=== PATIENT | male | born 1955 | race Caucasian/White ===

== ENCOUNTER 2019-07-02 09:23 | Observation (INO) ==
[2019-07-02] MEDS ORDERED: NORFLEX IV ONE (09:49)
[2019-07-02] MEDS ORDERED: NS 500 ML IV ONE (09:49)
[2019-07-02 10:14] LABS: BASO# 0.04 X1000 (0.0-0.2); BASO% 0.6 % (0.0-0.8); EOS# 0.17 X1000 (0.0-0.7); EOS% 2.5 % (0.0-10.0); HEMATOCRIT 36.7 % (42.0-52.0); HEMOGLOBIN 12.2 g/dL (14.0-18.0); LYMPH# 1.13 X1000 (1.2-3.4); LYMPH% 16.5 % (20.5-51.1); MCHC 33.2 g/dL (33-37); MCV 87.2 FL (81-99); MONO# 0.38 X1000 (0.11-0.59); MONO% 5.6 % (1.7-9.3); MPV 10.8 FL (7.4-10.4); NEUT# 5.11 X1000 (1.4-6.5); NEUT% 74.8 % (42.2-75.2); PLT 158 X1000 (130-400); RBC 4.21 XMIL (4.7-6.1); RDW 13.9 % (11.5-14.5); WBC 6.83 X1000 (4.8-10.8)
--- NOTE | 2019-07-02 10:20 | Diag Imaging Result Doc PS360 ---
RIBS UNILAT W/PA CHEST LEFT - 07/02/2019 INDICATION: pain after fall TECHNIQUE: Four views COMPARISON: 11/30/2015 FINDINGS: The chest is clear. The left-sided ribs are intact. IMPRESSION: Negative exam. Electronically signed by Fab Cooney 07/02/2019 10:18 AM
[2019-07-02 10:28] LABS: ACETONE SERUM NEGATIVE (NEGATIVE)
[2019-07-02 10:33] LABS: URINE SOURCE CATH
[2019-07-02 10:33] LABS: AGAP 16; ALB/GLOB RATIO 1.7; ALBUMIN 4.3 g/dL (3.5-5.0); ALKALINE PHOSPHATASE 118 U/L (32-122); BUN 14 mg/dL (8-22); CALCIUM 9.5 mg/dL (8.8-10.2); CHLORIDE 92 mmol/L (98-107); COSMO 266; CREATININE 3.8 mg/dL (0.7-1.2); ESTIMATED GFR 16; GLUCOSE 122 mg/dL (70-104); GOT 22 U/L (10-34); GPT 14 U/L (10-44); PHOSPHORUS 3.6 mg/dL (2.7-4.5); POTASSIUM 3.7 mmol/L (3.5-5.1); SODIUM 132 mmol/L (136-145); TCO2 24 mmol/L (25-35); TOTAL BILIRUBIN 0.59 mg/dL (0.20-1.00); TOTAL PROTEIN 6.8 g/dL (6.3-8.3)
[2019-07-02 10:35] LABS: BILIRUBIN URINE NEGATIVE (NEGATIVE); BLOOD URINE SMALL (NEGATIVE); COLOR YELLOW; GLUCOSE URINE NEGATIVE (NEGATIVE); KETONE URINE NEGATIVE (NEGATIVE); LEUKOCYTES URINE NEGATIVE (NEGATIVE); NITRITE URINE NEGATIVE (NEGATIVE); PH URINE 5.5; PROTEIN URINE 30 mg/dL (NEGATIVE); SP GRAVITY URINE 1.009; TURBIDITY URINE CLEAR (CLEAR); UR EPITHELIAL CELLS <10 /HPF (<10); URINE BACTERIA NEGATIVE /HPF; URINE RBC <10 /HPF (<10); URINE WBC <10 /HPF (<10); UROBILINOGEN URINE NORMAL (NORMAL)
--- NOTE | 2019-07-02 10:37 | Diag Imaging Result Doc PS360 ---
CT ABDOMEN/PELVIS W/O CONTRAST - 07/02/2019 INDICATION: left flank pain after fall, renal failure history COMPARISON: None FINDINGS: The lung bases are clear and the heart size is normal. There are couple of tiny nonobstructing right renal stones measuring about 2 mm. No left-sided stones. No hydronephrosis or hydroureter. Otherwise abdominal organs are normal. No bowel obstruction or inflammation. No free air or free fluid. Urinary bladder, prostate, and rectum are normal. Mild vascular disease in the pelvis. Spleen size is borderline measuring 12 x 6 cm. There are moderate degenerative changes of the spine. There is severe degeneration of the sacroiliac joints bilaterally. No acute or suspicious bony lesion. IMPRESSION: 1. Small nonobstructing right-sided renal stones. 2. No acute process. This exam was performed using automated exposure control, adjustment of mA or kV according to patient size, and/or use of iterative reconstruction technique Electronically signed by Fab Cooney 07/02/2019 10:35 AM
--- NOTE | 2019-07-02 10:44 | EKG Report ---
Test Performed on : 07/02/2019 10:25:20 AM Test Reason : weakness Blood Pressure : / mmHG Vent. Rate : 095 BPM Atrial Rate : 095 BPM P-R Int : 152 ms QRS Dur : 084 ms QT Int : 388 ms P-R-T Axes : 072 063 075 degrees QTc Int : 487 ms Sinus rhythm. with occasional premature ventricular complexes. Prolonged QT Abnormal ECG When compared with ECG of 12-APR-2018 13:53, premature ventricular complexes. are now present premature atrial complexes. are no longer present Criteria for Inferior-posterior infarct are no longer present Unconfirmed Result
--- NOTE | 2019-07-02 11:52 | Diag Imaging Result Doc PS360 ---
EXAM: CT HEAD W/O CONTRAST HISTORY: AMS TECHNIQUE: CT head without contrast COMPARISON: 06/30/2019 FINDINGS: No parenchymal hemorrhage. No epidural or subdural hematoma. No subarachnoid hemorrhage. Mild chronic microvascular ischemic changes. No mass identified on this noncontrasted exam. No hydrocephalus. No sinus opacification. IMPRESSION: No hemorrhage. No change This exam was performed using automated exposure control, adjustment of mA or kV according to patient size, and/or use of iterative reconstruction technique. Electronically signed by Arash Gonzalez 07/02/2019 11:50 AM
[2019-07-02 11:56] LABS: UR AMPHETAMINES QUAL NONE DETECTED (NONE DETECT); UR BARBITUATES QUAL NONE DETECTED (NONE DETECT); UR BENZODIAZEPIN QUAL NONE DETECTED (NONE DETECT); UR CANNABINOIDS QUAL NONE DETECTED (NONE DETECT); UR COCAINE QUAL NONE DETECTED (NONE DETECT); UR METHADONE QUAL NONE DETECTED (NONE DETECT); UR OPIATES QUAL PRESUMPTIVE POSITIVE (NONE DETECT); UR OXYCODONE QUAL NONE DETECTED (NONE DETECT); UR PCP QUAL NONE DETECTED (NONE DETECT)
--- NOTE | 2019-07-02 11:59 | PROVIDER DOCUMENTATION ---
This chart was entered by Niki Tobar Scribe, acting as scribe for Rudy Guzman MD. HPI-General Adult - General Stated Complaint: GENERALIZED WEAKNESS Time Seen by Provider: 07/02/19 09:39 Source: patient Allergies/Adverse Reactions: Patient Allergies Allergy/AdvReac Type Severity Reaction Status Date / Time aspirin AdvReac HIVES Verified 06/30/19 17:02 Home Medications: Home Medication List Medication Instructions Recorded Confirmed Last Taken Type Levothyroxine [Synthroid] 50 microgm PO DAILY 09/09/16 06/30/19 06/25/18 History Mirtazapine [Remeron] 22 mg PO QHS 09/09/16 06/30/19 06/25/18 History Venlafaxine HCl [Effexor Xr] 150 mg PO DAILY 09/09/16 06/30/19 06/25/18 History ROSUVAstatin [Crestor] 20 mg PO DAILY 04/12/18 06/30/19 06/25/18 History Baclofen 20 mg PO TID PRN PRN #15 tab 06/30/19 Unknown Rx Dulaglutide [Trulicity] 1 dose SQ ORDERED 06/30/19 06/30/19 Unknown History - History of Present Illness -Gen Adult Nature of Presenting Problems: 63 yom presents to the ed with c/o generalized weakness, fatigue, cough (mild) and left posterior rib tenderness that has been intermittent since 06/28/2019. pt was seen on 06/30/[address] erazo at [facility] and had a head CT and Rib CT done and dc home. pt is a dialysis pt and goes on monday and fridays only and sees dr pennington. he reports rib tenderness is from a past fall on 06/27 Location of Pain/Injury: reports: generalized (weakness and fatigue), other (posterior rib tenderness) Quality of Pain: reports: aching (left posterior ribs) Severity: reports: mild Onset/Duration: reports: other (06/28/2019) Timing: reports: intermittent Context/Activities at Onset: reports: other (fall on 06/28/2019) Modifying Factors: improves with: nothing Associated Symptoms: reports: cough, fatigue, malaise, muscle aches, weakness (generalized), other (posterior rib pain). denies: chest pain, fever/chills, nausea, shortness of breath, vomiting Similar Symptoms Previously?: Yes Recently seen or treated by another doctor?: Yes (saw dr erazo 06/30/2019 er) Review of Systems - Adult - REVIEW OF SYSTEMS - ADULT Constitutional: denies: chills, fever Eyes: reports: no symptoms reported Ears, Nose, Mouth & Throat: reports: no symptoms reported Cardiovascular: denies: chest pain, palpitations Respiratory: reports: see HPI, cough. denies: shortness of breath, wheezing Gastrointestinal: denies: diarrhea, nausea, vomiting Genitourinary: reports: no symptoms reported Musculoskeletal: reports: see HPI, other (posterior left rib pain/genralized weakness) Integumentary: reports: no symptoms reported Neurological: denies: dizziness/vertigo, headache/migraines Psychiatric: reports: no symptoms reported Endocrine: reports: no symptoms reported Hematologic/Lymphatic: reports: no symptoms reported Allergic/Immunologic: reports: no symptoms reported All Other Systems: Reviewed and Negative Past History - Adult - PAST MEDICAL HISTORY-ADULT Review of Records: reports: Old Records Reviewed, Nursing Assessment Review, Medications Reviewed, Social history reviewed & non-contributory. Major Childhood Illnesses: reports: denies history Cardiovascular: reports: HTN, hyperlipidemia Respiratory: reports: denies history Gastrointestinal: reports: denies history Genitourinary: reports: dialysis (monday and monday only), ESRD Musculoskeletal: reports: denies history Neurological: reports: denies history Psychiatric: reports: denies history Endocrine/Immune: reports: Diabetes, thyroid disorder Diabetes Type: Type 2 Diabetes controlled by:: Diet Other Conditions: reports: denies history - PRIOR SURGERIES/PROCEDURES Surgical/Procedure History: reports: indwelling device (dialysis shunt LUE), hernia repair, orthopedic (extremity) - IMMUNIZATION STATUS Childhood Immunizations: See Nurse Assessment Flu Vaccine: See Nurse Assessment - FAMILY HISTORY Family History: reviewed, not pertinent - SOCIAL HISTORY Smoking: denies Substance Use: denies Living Situation: family Physical Exam-General - PHYSICAL EXAM-ADULT Exam Limited by: pt is poor historian Initial Vital Signs Reviewed: Yes - CONSTITUTIONAL General Appearance: lethargic (but will open to voice and is answers questions correctly) - EYES Eyes: PERRL/EOMI - HEAD, EARS, NOSE, MOUTH & THROAT HENMT: other (raspy voice). negative: moist mucous membranes (dry oral) - NECK Neck: full range of motion, normal inspection - RESPIRATORY Respiratory: lungs clear, normal breath sounds, no respiratory distress, other (left posterior rib tenderness). negative: crepitus - CARDIOVASCULAR Cardiovascular: normal peripheral pulses, regular rate, rhythm, systolic murmur (1/6 at the apex) - GASTROINTESTINAL (ABDOMEN) Abdominal Exam: non tender, soft - GENITOURINARY Male Genitalia: deferred Rectal Exam: deferred Hemoccult Exam: deferred - LYMPHATIC Lymphatic: no adenopathy - MUSCULOSKELETAL Back Exam: no CVA tenderness, no vertebral tenderness Extremity: normal range of motion, normal capillary refill, other (has dialysis shunt left forearm with good thrill) - SKIN Integumentary: warm/dry, pallor - NEUROLOGIC Neurologic: grossly normal - PSYCHIATRIC Psych/Mental Status: oriented x 3 Progress - PLAN OF CARE/RESULTS Progress/Plan/Lab Results: Orders Category Date Time Status RIBS UNILAT W/PA CHEST LEFT [RAD] Stat Exams 07/02/19 09:47 Ordered Result Diagrams: 07/02/19 09:41 07/02/19 09:41 - REASSESSMENT Reassessment #1 Time Reassessed: 11:15 Status: worsening (Patient sleeping vs unresponsive, snoring reespirations with some periods of apnea/pause, rousable with repeated stimulation. Will admit to hospitalist for weakness/falling/hyponatremia) - EKG 1 Time of EKG reading by physician:: 10:25 EKG Read and Signed by:: Rudy Guzman EKG Interpretation (*Must complete 3 of following elements*): Abnormal Rate: 95 Rhythm: sinus rhythm QRS: PVC's, other (prolonged QT) VA Interval: normal ST Wave: normal - XRAY 1 XRAY Study: Chest, Ribs Impression: See EMR Report (FINDINGS: The chest is clear. The left-sided ribs are intact. IMPRESSION: Negative exam. Electronically signed by Fab catherine 07/02/2019 10:18 AM 07/02/19 1018 Interpreting Physician: Fab Cooney MD Dictated Date/Time: 07/02/19 1009) - CT/MRI 1 CT Study: Abdomen, Pelvis Impression: See EMR Report (IMPRESSION: 1. Small nonobstructing right-sided renal stones. 2. No acute process. This exam was performed using automated exposure control, adjustment of mA or kV according to patient size, and/or use of iterative reconstruction technique Electronically signed by Fab Cooney 07/02/2019 10:35 AM) 2 CT Study: Head Impression: Normal, See EMR Report (FINDINGS: No parenchymal hemorrhage. No epidural or subdural hematoma. No subarachnoid hemorrhage. Mild chronic microvascular ischemic changes. No mass identified on this noncontrasted exam. No hydrocephalus. No sinus opacification. IMPRESSION: No hemorrhage. No change This exam was performed using automated exposure control, adjustment of mA or kV according to patient size, and/or use of iterative reconstruction technique. Electronically signed by Arash Gonzalez 07/02/2019 11:50 AM 07/02/19 1150) - CONSULTS/PCP/HOSPITALIST Notification #1 *Consult/PCP/Hospitalist*: Hospitalist paged at 1123 Time Discussed: 11:27 (returned call spoke with liza) Consult Disposition: Will see in ED, Admit Departure - Departure Date of Disposition Decision: 07/02/19 Time of Disposition Decision: 11:25 DIAGNOSIS: Weakness generalized, Frequent falls, Contusion of left back wall of thorax, subsequent encounter, Hyponatremia Altered mental status, unspecified Qualifiers: Altered mental status type: somnolence Qualified Code(s): R40.0 - Somnolence Disposition: ADMITTED INPATIENT 09 Certified Medical Emergency: Emergent Condition: Fair Referrals and Follow-Ups: Juan Canela MD [Primary Care Provider] - - Critical Care Note This patient required my direct & personal management of CC.: No Attestation - Physician/ ALEXIS Attestation Patient care was provided by Advanced Practice Provider:: No The physician spent face to face time with patient:: Yes Advanced Practice Provider documentation review:: Supervising physician onsite and consulted in the evaluation and care of this patient. The physician did have a face to face encounter with the patient. This chart was documented by the indicated scribe, (Niki Tobar Scribe) and accurately reflects the services I performed and decisions made by Flor mc Kent A., MD, as attested by the provider's signature.
[2019-07-02 13:21] LABS: ALLEN TEST NO; BE 1.1 mmoll (-3.0-3.0); BLOOD TYPE ARTERIAL; HCO3-(ACT) 25.8 mmoll (20.0-26.0); METHB 0.7 % (0.0-1.5); O2(CT) 14.6 mL/dL (15.0-23.0); O2HB 96.4 % (95.0-99.0); PCO2(98.6) 45 mmHg (35-45); PO2(98.6) 91 mmHg (60-100); SAMPLE BLOOD; SAO2 98.3 % (95.0-100.0); THB 10.7 g/dL (11.5-17.4); pH(98.6) 7.38 (7.35-7.45)
[2019-07-02 13:22] LABS: MODALITY ROOM AIR
--- NOTE | 2019-07-02 13:58 | HISTORY AND PHYSICAL ---
PRIMARY CARE PROVIDER: Juan Canela MD FACILITIES FLIGHT CHECK PILOT: Dr. Cline. CHIEF COMPLAINT: Per ED record generalized weakness. HISTORY OF PRESENT ILLNESS: Mr. Waddell is a 63-year-old male who carries a past medical history of end-stage renal disease on hemodialysis Monday and Monday, situational depression, diabetes mellitus, hypertension, skin cancer, and GERD, who came to the ED on 06/29 after complaining of generalized weakness, fatigue, and mild cough as well as some left rib tenderness secondary to falls. At that time, he had a head CT that was completely normal as well as a rib CT, and discharged home I believe with some baclofen. He was brought back into the ED today again for generalized weakness. The patient is extremely hard to arouse even with a sternal rub. He does not stay awake long enough to answer many questions. However, his current laboratory data is not far off from baseline. Toxicology screen is positive for opiates. He declines to take pain medication. He does take some trazodone for sleep. Workup in the ED with a repeat rib x-ray is a negative exam. Head CT does not show anything acute. Abdomen and pelvis CT showed some small nonobstructing right-sided renal stones. No acute process currently checking a stat ABG. Hemodynamically, he looks stable. We will place him in the ICU for close observation. PAST MEDICAL HISTORY: End-stage renal disease on hemodialysis Mondays and Fridays, diabetes mellitus, hypertension, GERD, hypothyroidism, and skin cancer. PAST SURGICAL HISTORY: AV fistula placement and revision on the left forearm, carpal tunnel, and cataract. REVIEW OF SYSTEMS: Hard to obtain secondary to the patient being unarousable. PHYSICAL EXAMINATION: VITAL SIGNS: Temperature is 97.6 degrees, heart rate 78, respirations 16, blood pressure 120/57, ad O2 is 100% on room air. GENERAL: Mr. Waddell is a 63-year-old gentleman who is lying on the stretcher snoring. He did not awaken to voice. He was hard to awaken even to tactile stimuli with hard sternal rub. Once he did awaken, he would fall right back asleep, and was not really able to answer any questions, could only briefly flutter open his eyes. HEENT: Atraumatic and normocephalic. PERRL. NECK: Supple. Trachea midline. CARDIOVASCULAR: S1, S2 appreciated, possible murmur. RESPIRATORY: Lung sounds clear bilaterally. GI: Appear to be soft, nontender, and nondistended. Positive bowel sounds. EXTREMITIES: Left forearm shunt with good thrill. SKIN: Appears to be warm, dry, and intact. NEUROLOGIC: The patient was very hard to arouse. He did not arouse to voice. It was hard to arouse him with hard sternal rub. When he did arouse, he would flutter his eyes. He would attempt to answer questions however, he was not able to get any full sentences out before he was back asleep and snoring. DIAGNOSTIC DATA: chest x-ray, negative exam. EKG sinus rhythm with occasional PVCs, prolonged QT. Abdomen and pelvis CT with small nonobstructing right-sided renal stones. No acute process. Head CT, no hemorrhage, no change. LABORATORY DATA: White count 6, hemoglobin and hematocrit 12 and 36, and platelet count is 158,000. Sodium 132, potassium 3.7, BUN 14, creatinine 3.8, blood glucose is 122, magnesium 2, and troponin 37. Urinalysis is negative. Toxicology screen is positive for opiates. ASSESSMENT AND PLAN: 1. Reported falls with generalized weakness. Recent trip to the emergency room 2 days ago for a fall with rib injury. I believe he was given some baclofen then. When I asked him if he took pain medicine, his response was no. He is positive for opiates. Once the patient is more awake and alert, we will consult PT. His rib x-ray does not show any acute process. Head CT is normal. 2. Toxic metabolic encephalopathy. The patient is positive for opiates on drug screen. It does look like he takes trazodone, and has been given baclofen and I believe Effexor as well. Could be a combination. We will hold any sedating medications. He has been given a L of fluid. The patient being end-stage renal. We will see if he needs any more IV fluids. 3. End-stage renal disease on hemodialysis Monday and Monday. We will contact Dr. Cline for help with medical management. 4. Diabetes mellitus. We will place him on sliding scale with pattern blood sugars. He will be n.p.o. for now until he is more awake, and then he can be placed on a diabetic diet. 5. Hypothyroidism. We will continue Synthroid. 6. Hypertension, normotensive. 7. Further recommendation to follow physician evaluation, laboratory and diagnostic data. Dictated by SELINA Pro for Earlene Fairchild MD cc: Earlene Fairchild MD MTDD
[2019-07-02] MEDS: HUMALOG SUBQ SCH ×2 (16:55→20:48)
[2019-07-02] MEDS: HEPARIN SUBQ SCH (20:47)
[2019-07-02] MEDS ORDERED: LASIX PO SCH (21:00)
[2019-07-03] MEDS: SYNTHROID PO SCH (06:01)
[2019-07-03] MEDS: HUMALOG SUBQ SCH (06:01)
[2019-07-03 07:18] LABS: HEMATOCRIT 31.7 % (42.0-52.0); HEMOGLOBIN 10.7 g/dL (14.0-18.0); MCH 29.9 PG (27-31); MCHC 33.8 g/dL (33-37); MCV 88.5 FL (81-99); MPV 10.5 FL (7.4-10.4); RBC 3.58 XMIL (4.7-6.1); RDW 13.8 % (11.5-14.5); WBC 6.98 X1000 (4.8-10.8)
[2019-07-03 07:56] LABS: ALB/GLOB RATIO 1.6; ALBUMIN 3.7 g/dL (3.5-5.0); CREATININE 4.7 mg/dL (0.7-1.2); POTASSIUM 3.9 mmol/L (3.5-5.1); TOTAL BILIRUBIN 0.53 mg/dL (0.20-1.00)
[2019-07-03] MEDS ORDERED: LASIX PO SCH ×2 (09:00→21:00)
[2019-07-03] MEDS: HEPARIN SUBQ SCH ×2 (09:49→20:18)
--- NOTE | 2019-07-03 14:20 | NEPHROLOGY CONSULTATION ---
DATE: 07/03/2019 REASON FOR CONSULTATION: Medical assistance HD patient. HISTORY OF PRESENT ILLNESS: Mr. Waddell is a 63-year-old, white male who is known to us from the outpatient dialysis arena. He has CKD 5D and receives hemodialysis twice a week. He still has good urine output and requires minimal ultrafiltration. He had a fall and started taking a muscle relaxer to assist with pain management. He became somnolent and weak and therefore was brought in the emergency room for evaluation. Today, he is improved but remains somewhat weak. He has some mild cognitive impairment at baseline. He has not missed any dialysis. PAST MEDICAL HISTORY: As above. Also has hypothyroidism, hyperlipidemia, and hypertension. HOME MEDICATIONS: Include venlafaxine, levothyroxine, furosemide, rosuvastatin, trazodone, hydrocodone. ALLERGIES: Aspirin. SOCIAL HISTORY: , lives with his . FAMILY HISTORY: Noncontributory. REVIEW OF SYSTEMS: Noncontributory. PHYSICAL EXAMINATION: Vital Signs: Blood pressure 112/54, heart rate 90, respiration 18, afebrile. General: No acute distress. Skin: Warm and dry. Pupils are equal. Conjunctivae are pink. Oropharynx is clear. Normal tongue. Normal teeth. Neck: Supple. Trachea is midline. No jugular venous distention. Heart: Regular. No gallops. Lungs: Equal. No crackles. Abdomen: Soft, nontender. Bowel sounds are present. Extremities: Have no edema, clubbing or cyanosis. IMPRESSION/PLAN: 1. Chronic kidney disease 5D. He will have his routine dialysis following his normal schedule Monday, Monday. Electrolytes/acid base/volume status/anemia all in target. 2. Altered mental status is improved. 3. I agree with physical therapy assessment. cc: Devang Cline MD
--- NOTE | 2019-07-03 16:49 | ECHO REPORT ---
ORDER DATE: 07/03/2019 ECHOCARDIOGRAPHIC MEASUREMENTS: 1. Interventricular septum 0.9. 2. Left ventricular posterior wall 0.9. 3. Diastolic diameter 4.1 cm. 4. Left atrium 2.9 cm. 5. Aorta 3.4 cm. 6. Pulmonic valve was normal. 7. Aortic valve leaflets are trileaflet. 8. Mitral valve was normal. 9. Tricuspid valve was normal. 10. Normal left ventricular cavity size estimated ejection fraction of 65%. There is mild tricuspid regurgitation. Peak velocity across the tricuspid valve is 2.7 m/sec. 11. Pulmonary artery systolic pressure of 40 mmHg. There is mild mitral regurgitation. 12. Mild tricuspid regurgitation. 13. Peak velocity across the aortic valve less than 2 m/sec. There is no aortic stenosis or regurgitation. 14. There is no pericardial effusion or obvious intracardiac mass or thrombus seen. cc: MD Radha Cardoza CRNP
--- NOTE | 2019-07-03 20:44 | PROGRESS NOTE ---
DATE: 07/03/2019 SUBJECTIVE: The patient states that he feels a little bit better. However, when physical therapy was working with him this afternoon he started to feel dizzy and almost fell. OBJECTIVE: Vital Signs: Temperature 99 degrees, blood pressure 118/69, heart rate 87, respirations 19, O2 saturations 100% on room air. General: This is a chronically ill-appearing elderly male sitting up in bed in no acute distress. Heart: S1, S2 normal. Regular rate and rhythm. Lungs: Clear to auscultation bilaterally. No wheezing. No rales. No rhonchi. Abdomen: Positive bowel sounds. Soft, nontender, nondistended. Extremities: No edema. No cyanosis. Neurologic: The patient is alert and oriented x3. LABORATORIES: White blood cell count 6.9, hemoglobin 10, hematocrit 31, platelets 149,000. Sodium 138, potassium 3.9, chloride 99, CO2 23, BUN 23, creatinine 4.7, glucose 90, albumin 3.7. ASSESSMENT AND PLAN: 1. Toxic encephalopathy. This was likely secondary to baclofen. I had a discussion with the patient's who stated that the only new medication that the patient had recently been started on was baclofen when he went to the ER after his fall on June 30. The patient appears to be back to his baseline. 2. Dizziness with deconditioning. We will have Physical Therapy work with the patient again tomorrow. If the patient is able to walk without feeling symptomatic he can be discharged. 3. Chronic kidney disease stage 5D. The. Management as per the construction administrative assistant. 4. Hypothyroidism. Continue on Synthroid. 5. Deep vein thrombosis prophylaxis. Continue on heparin. cc: Earlene Fairchild MD MTDD
[2019-07-03] MEDS ORDERED: CRESTOR PO SCH (21:00)
[2019-07-03] MEDS ORDERED: NS 1,000 ML IV SCH (22:45)
[2019-07-04] MEDS: SYNTHROID PO SCH (06:18)
[2019-07-04 08:15] LABS: HEMATOCRIT 32.2 % (42.0-52.0); HEMOGLOBIN 10.9 g/dL (14.0-18.0); MCH 29.5 PG (27-31); MCHC 33.9 g/dL (33-37); MCV 87.3 FL (81-99); MPV 10.6 FL (7.4-10.4); RBC 3.69 XMIL (4.7-6.1); RDW 13.7 % (11.5-14.5); WBC 6.26 X1000 (4.8-10.8)
[2019-07-04] MEDS: HEPARIN SUBQ SCH (08:45)
[2019-07-04 08:46] LABS: ALBUMIN 3.8 g/dL (3.5-5.0); CALCIUM 9.4 mg/dL (8.8-10.2); PHOSPHORUS 3.1 mg/dL (2.7-4.5); POTASSIUM 3.4 mmol/L (3.5-5.1)
[2019-07-04 08:47] LABS: CREATININE 5.4 mg/dL (0.7-1.2)
[2019-07-04 09:00] LABS: TSH 0.41 uIUmL (0.27-4.20)
--- NOTE | 2019-07-04 09:34 | EKG Report ---
Test Performed on : 07/04/2019 09:14:32 AM Test Reason : dizziness Blood Pressure : / mmHG Vent. Rate : 090 BPM Atrial Rate : 090 BPM P-R Int : 152 ms QRS Dur : 082 ms QT Int : 362 ms P-R-T Axes : 070 048 053 degrees QTc Int : 442 ms Normal sinus rhythm. Normal ECG When compared with ECG of 02-JUL-2019 10:25, (Unconfirmed) premature ventricular complexes. are no longer present Unconfirmed Result
[2019-07-04] MEDS ORDERED: NS 1,000 ML IV ONE (10:32)
--- NOTE | 2019-07-04 12:44 | NEPHROLOGY PROGRESS NOTE ---
DATE: 07/04/2019 SUBJECTIVE: He had dizziness when he got up to walk with therapy yesterday. He was orthostatic, with blood pressure dropping to 71/47 on standing. Today, no new symptoms. He has been able to eat. He is receiving IV fluids. OBJECTIVE: Vital: Stable as recorded. General: No acute distress. Skin: Warm and dry. Neck: Neck veins are not distended. Heart: Regular. No gallops. Lungs: Equal. No crackles. Abdomen: Soft. Bowel sounds present. Extremities: No edema. IMPRESSION: 1. Chronic kidney disease, stage 5D. He will have his routine dialysis tomorrow. Electrolytes and acid-base are acceptable. 2. Orthostatic hypotension. He is receiving IV fluids and we will attempt to raise his dry weight at the dialysis center. Re-evaluate hypotension after these changes are made. cc: Devang Cline MD
--- NOTE | 2019-07-04 12:55 | CARDIOLOGY CONSULTATION ---
DATE: 07/04/2019 CHIEF COMPLAINT: Weakness, altered mental status. HISTORY OF PRESENT ILLNESS: Mr. Waddell is a 63-year-old male with a history of end-stage renal disease. Apparently late last week, he was doing some work out in his shop, tripped and fell, resulting in a physical trauma to his left flank/hip area. Over that time, he had been taking excess muscle relaxers at home. It seems like over that time period, he developed continued fatigue and weakness. No syncope. He denies any episodic severe lightheadedness with standing at that time. No chest pain. No shortness of breath. During the hospitalization, he has been noted to be orthostatic. The patient reports that this is a frequent issue at hemodialysis. He has not had to have any fluids given back over that time period, and he says they manage it conservatively. PAST MEDICAL HISTORY: 1. End-stage renal disease with hemodialysis Monday, Monday, Monday. 2. Diabetes. 3. Hypertension. 4. Reflux. 5. Hypothyroidism. SOCIAL HISTORY: He does not smoke. No alcohol. FAMILY HISTORY: Significant for hypertension. REVIEW OF SYSTEMS: A 10-system review of systems is negative, except for those things mentioned in the HPI. PHYSICAL EXAMINATION: Vital Signs: Afebrile, heart rate 80, blood pressure most recently was 130/70. At 8:00 this morning, he had a supine blood pressure of 130 systolic over 70, with a heart rate of 80. Standing, his heart rate elevated to 100, with a systolic of 77/45. He does not report being symptomatic with that. General: No acute distress. HEENT: Oropharynx is moist. Poor dentition. Eye examination shows pink conjunctivae, white sclerae. Neck: No obvious thyromegaly or thyroid tenderness. Cardiovascular: He sounds to be in a regular rate and rhythm. He has no obvious murmurs. He has no S3. He has no lower extremity edema. Chest: Sounds clear bilaterally. He has no increased work of breathing. Abdomen: Soft, nontender, nondistended. He has no obvious organomegaly. Skin: Warm and dry throughout. Neurological: He is moving all extremities well. He has no lateralizing deficits. PERTINENT DATA: His echo demonstrates an EF of 65%. RV systolic pressure of 40. No significant valvular abnormalities. He had a head CT that was unremarkable from previous. No acute bleed. Abdomen and pelvis CT shows small nonobstructing right-sided renal stones, otherwise no acute processes. Rib series x-ray demonstrated no abnormalities. His EKG on 07/04/2019 at 9:14 shows sinus rhythm, no ischemic changes. His next EKG on 07/02/2019 at 10:25 shows sinus rhythm, no ischemic changes. White count 6.2, hematocrit 32, platelet count 165,000. His sodium is 137, potassium 3.4, BUN 32, creatinine 5.4. His TSH is 0.41. ASSESSMENT: Mr. Waddell is a 63-year-old gentleman with a history of end-stage renal disease, and found to be orthostatics during evaluation. PLAN: At this point, I will discuss with Dr. Cline. It sounds like orthostasis has been a chronic issue for this patient. We could handle it conservatively initially with counter pressure maneuvers as well as compression. If pharmacologic therapy is needed, we could use potentially midodrine. Presently, the patient does not seem to be symptomatic from this, and his episode of a fall last week did not seem to be due to lightheadedness or dizziness. cc: Matt Jennings MD
--- NOTE | 2019-07-04 14:58 | PROGRESS NOTE ---
DATE: 07/04/2019 SUBJECTIVE: The patient is resting comfortably in bed. He states that he has not gotten up yet today with Physical Therapy. He is currently receiving a fluid bolus. OBJECTIVE: Vital Signs: Temperature 98.8 degrees, blood pressure 100/45, heart rate 90, respirations 18, O2 saturation 99% on room air. General: This is a chronically ill-appearing, elderly male, lying in bed in no acute distress. Heart: S1, S2 normal. Regular rate and rhythm. Lungs: Clear to auscultation bilaterally. Abdomen: Positive bowel sounds. Soft, nontender, nondistended. Extremities: No edema, no cyanosis. Neurologic: The patient is alert and oriented x3. LABORATORY DATA: White blood cell count 6.2, hemoglobin 10, hematocrit 32, platelets 165,000. Sodium 137, potassium 3.4, chloride 96, BUN 32, creatinine 5.4, glucose 139. ASSESSMENT AND PLAN: 1. Toxic encephalopathy. Resolved. Likely secondary to baclofen. 2. Orthostatic hypotension. Discussed with Dr. Cline. Will give the patient a 1 liter fluid bolus, and then check orthostatics afterwards. If the patient is no longer orthostatic, will plan to discharge him home today. 3. Chronic kidney disease stage 5D. Management as per the service station manager. 4. Hypothyroidism. Continue on Synthroid. 5. Deep vein thrombosis prophylaxis. Continue on heparin. 6. Disposition. I updated the patient's , Seble, and updated her on the plan of care. Physical Therapy is following. The patient will need home health upon discharge. cc: Earlene Fairchild MD
[2019-07-04 17:20] VITALS: BP 111/63
--- NOTE | 2019-07-05 08:32 | DISCHARGE SUMMARY ---
ADMISSION DATE: 07/02/2019 DISCHARGE DATE: 07/04/2019 FINAL DISCHARGE DIAGNOSES: 1. Toxic encephalopathy secondary to baclofen. 2. Orthostatic hypotension. 3. Chronic kidney disease stage 5 D. 4. Hypothyroidism. CONSULTATIONS: 1. Nephrology consultation with Dr. Cline. 2. Cardiology consultation with Dr. Jennings. IMAGIN. X-ray of the ribs and chest, which revealed a negative exam. 2. CT of the abdomen and pelvis, which revealed no acute process. 3. Head CT which revealed no hemorrhage, no change. 4. Echocardiogram which revealed an ejection fraction of 65%. HOSPITAL COURSE: Mr. Bellamy is a 63-year-old male with a history of chronic kidney disease stage 5 D on hemodialysis, who presented to the hospital with confusion. The patient was seen in the ER on June 29 after suffering a fall. Following the fall, the patient was complaining of back pain. During that visit, the patient was given a prescription for baclofen. The following day, the patient had the prescription filled and shortly thereafter started to feel confused. Upon arrival to the ER, the patient was lethargic. Head CT was done that revealed no acute finding. The patient was admitted to the Hospitalist Service. A CT of the abdomen and pelvis was also done that was unremarkable. By the following day, the patient was back to his baseline level of function. However, whenever the patient would stand, he would become dizzy. Orthostatics were checked, and the patient was noted to be suffering from orthostatic hypotension. The patient was taken off of his diuretic therapy and Cardiology was consulted. The patient was given a liter of normal saline, and his orthostatics were repeated. The patient was no longer orthostatic after receiving fluid. The patient stated that he no longer felt dizzy and felt well enough to go home. The patient was cleared for discharge home on 07/04/2019. DISCHARGE MEDICATIONS: 1. Synthroid 50 mcg oral daily. 2. Crestor 20 mg oral every morning. 3. Trazodone 150 mg oral at bedtime. 4. Effexor XR 150 mg oral daily. 5. [place] 7.5/325 one tab oral every 6 hours p.r.n. for pain. DISCHARGE DIET: Renal diet. ACTIVITY: As tolerated. FOLLOWUP INSTRUCTIONS: The patient will need to follow up with Dr. Jennings as scheduled by his clinic. The patient will need to follow up with Dr. Cline for his routine dialysis sessions. cc: MD Juan Castro MD
== END 2019-07-04 18:55 | disposition home health service (06) ==
LOC: SUPCPDRO → EDIPHOLD 09:23 → ED 09:23 → ICU 15:29 → 3N 17:59
PROVIDERS: ATTEND Internal Medicine